=== PATIENT | female | born 1975 | race Caucasian/White ===

== ENCOUNTER 2023-09-24 20:21 | Inpatient (IN) | payer OTHER ==
[~2023-09-24 20:21] MED LIST: Iopamidol-370 76% 500 ML MDV (1 ML CHARGE) ONE
[2023-09-24] MEDS ORDERED: Sodium Chloride 0.9% 100 ML ONE (20:25)
[2023-09-24] MEDS ORDERED: Boostrix 0.5 ML (Tdap) VIAL (>/=7 yrs of age) ONE (20:25)
[2023-09-24] MEDS ORDERED: CEFAZOLIN 1 GM VIAL ONE (20:25)
[2023-09-24] MEDS ORDERED: fentaNYL 50 mcg/mL 1 mL Vial ONE ×2 (20:34→21:59)
[2023-09-24 20:49] LABS: #Basophils 0.11 10x3/uL (0.0-0.2); %Basophils 0.4 % (0.0-1.0); %Eosinophils 0.3 % (0.0-10.0); %Lymphocytes 10.6 % (21.0-51.0); %Monocytes 4.6 % (0.0-10.0); %Neutrophils 82.7 % (42.0-75.0); Hematocrit 34.2 % (36.0-47.0); Hemoglobin 11.8 g/dL (12.0-16.0); Mean Corpuscular HGB CONC 34.5 g/dL (32.0-36.0); Mean Corpuscular Hemoglobin 28.5 pg (27.0-31.0); Mean Corpuscular Volume 82.6 fL (78.0-98.0); Mean Platelet Volume 8.8 fL (7.4-10.4); Platelet Count 438 10x3/uL (130-400); RBC Distribution Width 13.4 % (11.5-14.5); Red Blood Cell (RBC) Count 4.14 mill/uL (4.20-5.40)
[2023-09-24 21:02] LABS: BHCG - Serum Negative (NEGATIVE); Pregs Control Background? CLEAR/WHITE (CLR/WHITE); Pregs Control Bar Appear? YES (CONTROL BAR)
[2023-09-24 21:03] LABS: Prothrombin Time 12.7 sec (12.0-14.7)
[2023-09-24 21:04] LABS: PTT 22.2 sec (22.9-36.1)
[2023-09-24 21:08] LABS: ALT (SGPT) 33 U/L (8-55); AST (SGOT) 63 U/L (5-34); Albumin 3.5 g/dL (3.5-5.0); Alkaline Phosphatase 103 U/L (40-110); Anion Gap 15 mmol/L (10-20); BUN (Urea Nitrogen) 15 mg/dL (7.0-18.7); Bilirubin, Total 0.4 mg/dL (0.2-1.2); CK (CPK) 245 U/L (29-168); Calc. Creatinine Clearance 0 mL/min (70-130); Calcium 8.9 mg/dL (7.8-10.44); Carbon Dioxide 19 mmol/L (22-29); Chloride 107 mmol/L (98-107); Estimated GFR 88; Globulin 2.8 g/dL (2.4-3.5); Glucose 118 mg/dL (70-105); Potassium 3.8 mmol/L (3.5-5.1); Protein, Total 6.3 g/dL (6.0-8.3); Sodium 137 mmol/L (136-145)
[2023-09-24 21:09] LABS: Acetaminophen Less than 10 mcg/mL (10.0-30.0); Alcohol Less than 10.0 mg/dL (Less than 10); Salicylate Less than 8.0 mg/dL (15.0-30.0)
[2023-09-24] MEDS ORDERED: Morphine 4 MG/ML VIAL ONE ×2 (21:09→23:49)
[2023-09-24] MEDS ORDERED: Ondansetron PF 4 MG/2 ML Vial ONE ×2 (21:14→23:49)
[2023-09-24] MEDS ORDERED: Gentamicin 80 MG/2 ML VIAL ONE (21:28)
[2023-09-24] MEDS ORDERED: PROPOFOL 20 ML ONE ×2 (21:30→21:34)
[2023-09-24] MEDS ORDERED: Acetaminophen 325 MG TAB PO PRN (22:29)
[2023-09-24] MEDS ORDERED: Ondansetron PF 4 MG/2 ML Vial IVP PRN (22:29)
[2023-09-24] MEDS ORDERED: Promethazine HCl 25 MG/ML VIAL IM PRN (22:29)
[2023-09-24] MEDS ORDERED: HYDROmorphone 0.5 MG/0.5 ML SYRINGE ONE (22:35)
[2023-09-24] MEDS ORDERED: Lorazepam 2 MG/ML VIAL ONE (23:09)
[2023-09-24 23:58] LABS: Lactic Acid 3.8 mmol/L (0.5-2.2)
[2023-09-25] MEDS: Sodium Chloride 0.9% 1,000 ML IV SCH ×2 (00:53→08:36)
[2023-09-25] MEDS: Morphine 4 MG/ML VIAL SLOW IVP PRN (01:44)
[2023-09-25] MEDS: traMADol HCl 50 MG TAB PO PRN (01:45)
[2023-09-25] MEDS: HYDROmorphone 0.5 MG/0.5 ML SYRINGE SLOW IVP SCH (02:15)
[2023-09-25] MEDS: Cyclobenzaprine 10 MG TAB PO PRN (02:16)
[2023-09-25] MEDS: diphenhydrAMINE 50 MG/ML VIAL IVP SCH (03:54)
[2023-09-25] MEDS: CEFAZOLIN 2 GM in Sodium Chloride 0.9% 100 ML IVPB SCH (05:26)
[2023-09-25] MEDS: Lorazepam 2 MG/ML VIAL SLOW IVP SCH (05:34)
[2023-09-25] MEDS ORDERED: CEFAZOLIN 2 GM in Sodium Chloride 0.9% 100 ML IVPB SCH ×2 (06:00→22:00)
[2023-09-25 06:02] LABS: #Basophils 0.03 10x3/uL (0.0-0.2); #Eosinphils Less than 0.03 10x3/uL (0.0-0.7); %Basophils 0.2 % (0.0-1.0); %Lymphocytes 9.9 % (21.0-51.0); %Monocytes 6.3 % (0.0-10.0); Hematocrit 31.5 % (36.0-47.0); Hemoglobin 10.5 g/dL (12.0-16.0); Mean Corpuscular HGB CONC 33.3 g/dL (32.0-36.0); Mean Corpuscular Hemoglobin 28.8 pg (27.0-31.0); Mean Corpuscular Volume 86.5 fL (78.0-98.0); Mean Platelet Volume 8.8 fL (7.4-10.4); Platelet Count 256 10x3/uL (130-400); RBC Distribution Width 13.7 % (11.5-14.5); Red Blood Cell (RBC) Count 3.64 mill/uL (4.20-5.40)
[2023-09-25 06:30] LABS: ALT (SGPT) 53 U/L (8-55); AST (SGOT) 94 U/L (5-34); Alkaline Phosphatase 87 U/L (40-110); Anion Gap 14 mmol/L (10-20); BUN (Urea Nitrogen) 12 mg/dL (7.0-18.7); Bilirubin, Total 0.5 mg/dL (0.2-1.2); Calc. Creatinine Clearance 0 mL/min (70-130); Calcium 7.8 mg/dL (7.8-10.44); Carbon Dioxide 19 mmol/L (22-29); Chloride 112 mmol/L (98-107); Estimated GFR 105; Globulin 2.2 g/dL (2.4-3.5); Glucose 96 mg/dL (70-105); Potassium 3.7 mmol/L (3.5-5.1); Protein, Total 5.2 g/dL (6.0-8.3); Sodium 141 mmol/L (136-145)
[2023-09-25] MEDS ORDERED: Bupivacaine HCl 0.5%/Epinephrine 1:200,000/PF 30 ml Vial ONE (07:05)
[2023-09-25] MEDS: Famotidine/PF 20 mg/2ml Vial SLOW IVP SCH (07:50)
[2023-09-25] MEDS ORDERED: diphenhydrAMINE 25 MG CAP PO PRN ×2 (08:26→14:14)
[2023-09-25] MEDS: Ketorolac Tromethamine 30 MG (1 mL) VIAL IVP SCH ×2 (09:45→18:31)
[2023-09-25] MEDS: Acetaminophen 500 MG TAB PO SCH (09:45)
[2023-09-25] MEDS ORDERED: Ondansetron PF 4 MG/2 ML Vial ONE ×2 (11:03→12:25)
[2023-09-25] MEDS ORDERED: PROPOFOL 20 ML ONE (11:38)
[2023-09-25] MEDS ORDERED: Lidocaine 1% PF 5 ML VIAL ONE (11:38)
[2023-09-25] MEDS ORDERED: fentaNYL PF 100 MCG/2 ML SYRINGE ONE (11:38)
[2023-09-25] MEDS ORDERED: Sodium Chloride 0.9% 100 ML ONE (11:48)
[2023-09-25] MEDS ORDERED: CEFAZOLIN 2 GM VIAL ONE (11:48)
[2023-09-25] MEDS ORDERED: Midazolam HCl 2 mg/2 ml Vial ONE (12:06)
[2023-09-25] MEDS ORDERED: Ketorolac Tromethamine 30 MG (1 mL) VIAL ONE (12:25)
[2023-09-25] MEDS ORDERED: Dexamethasone 20 MG/5 ML VIAL ONE (12:25)
[2023-09-25] MEDS ORDERED: Iopamidol-370 76% 500 ML MDV (1 ML CHARGE) ONE (12:28)
[2023-09-25] MEDS ORDERED: PHENYLEPHRINE-NS 100 MCG/ML 10 ML SYRINGE ONE (12:37)
[2023-09-25] MEDS ORDERED: HYDROmorphone 2 MG/ML VIAL ONE (13:38)
[2023-09-25] MEDS ORDERED: HYDROmorphone 2 MG/ML VIAL SLOW IVP PRN (14:02)
[2023-09-25] MEDS ORDERED: Ondansetron HCl/PF 4 MG/2 ML Vial IVP PRN (14:02)
[2023-09-25] MEDS ORDERED: Promethazine HCl 25 MG/ML VIAL IM PRN ×2 (14:02→14:14)
[2023-09-25] MEDS ORDERED: Morphine Sulfate 2 MG/ML SYRINGE SLOW IVP PRN (14:02)
[2023-09-25] MEDS ORDERED: PACU-Morphine 4MG/ML VIAL SLOW IVP PRN (14:02)
[2023-09-25] MEDS ORDERED: diphenhydrAMINE 50 MG/ML VIAL IM PRN ×2 (14:14→14:15)
[2023-09-25] MEDS ORDERED: diphenhydrAMINE 50 MG/ML VIAL IVP PRN (14:14)
[2023-09-25] MEDS ORDERED: Ondansetron PF 4 MG/2 ML Vial IVP PRN (14:14)
[2023-09-25] MEDS ORDERED: FENTANYL 500 MCG/10 ML VIAL 2,000 MCG in Sodium Chloride 0.9% 60 ML IV PRN (14:14)
[2023-09-25] MEDS ORDERED: Naloxone HCl 0.4 mg/ml Vial IV PRN ×2 (14:14→14:15)
[2023-09-25] MEDS ORDERED: Ketorolac Tromethamine 30 MG (1 mL) VIAL IVP PRN ×2 (14:15→15:35)
[2023-09-25] MEDS ORDERED: Communication Order-Pharmacy FS SCH ×2 (14:15)
[2023-09-25] MEDS: Acetaminophen 325 MG TAB PO SCH (18:29)
[2023-09-25] MEDS: traMADol HCl 50 MG TAB PO SCH (18:30)
[2023-09-25] MEDS: diphenhydrAMINE 50 MG/ML VIAL IVP PRN (18:30)
[2023-09-25] MEDS: Ondansetron PF 4 MG/2 ML Vial IVP PRN (18:38)
[2023-09-25] MEDS: Promethazine HCl 25 MG/ML VIAL IM PRN (21:31)
[2023-09-26] MEDS: Enoxaparin 40 MG (0.4 mL) SYRINGE SC SCH (09:46)
[2023-09-26] MEDS: diphenhydrAMINE 25 MG CAP PO PRN (10:42)
[2023-09-26] MEDS: Fentanyl CADD 100 ML IVPB PRN (20:44)
[2023-09-27] MEDS ORDERED: CEFAZOLIN 2 GM in Sodium Chloride 0.9% 100 ML IVPB SCH (09:00)
[2023-09-28] MEDS ORDERED: fentaNYL PF 100 MCG/2 ML SYRINGE ONE (14:10)
[2023-09-28] MEDS ORDERED: PROPOFOL 20 ML ONE (14:10)
[2023-09-28] MEDS ORDERED: Rocuronium Bromide 10 MG/ML (10ML VIAL) ONE (14:10)
[2023-09-28] MEDS ORDERED: Lidocaine 1% PF 5 ML VIAL ONE (14:10)
[2023-09-28] MEDS ORDERED: Sodium Chloride 0.9% 100 ML ONE (14:12)
[2023-09-28] MEDS ORDERED: CEFAZOLIN 2 GM VIAL ONE (14:12)
[2023-09-28] MEDS ORDERED: Ondansetron PF 4 MG/2 ML Vial ONE (14:48)
[2023-09-28] MEDS ORDERED: Dexamethasone 20 MG/5 ML VIAL ONE (14:48)
[2023-09-28] MEDS ORDERED: SUGAMMADEX SODIUM 200 MG/2 ML VIAL ONE (14:57)
[2023-09-28] MEDS ORDERED: Midazolam HCl 2 mg/2 ml Vial ONE (15:05)
[2023-09-28] MEDS ORDERED: Promethazine HCl 25 MG/ML VIAL IM PRN (15:17)
[2023-09-28] MEDS ORDERED: HYDROmorphone 2 MG/ML VIAL SLOW IVP PRN (15:17)
[2023-09-28] MEDS ORDERED: Morphine Sulfate 2 MG/ML SYRINGE SLOW IVP PRN (15:17)
[2023-09-28] MEDS ORDERED: PACU-Morphine 4MG/ML VIAL SLOW IVP PRN (15:17)
[2023-09-28] MEDS ORDERED: Ondansetron HCl/PF 4 MG/2 ML Vial IVP PRN (15:17)
[2023-09-28] MEDS ORDERED: HYDROmorphone 0.5 MG/0.5 ML SYRINGE ONE ×2 (15:41→15:51)
[2023-09-28] MEDS: HYDROcodone/Acetaminophen 5/325 mg Tablet PO PRN (17:41)
[2023-09-29 05:41] LABS: #Basophils Less than 0.03 10x3/uL (0.0-0.2); #Eosinphils Less than 0.03 10x3/uL (0.0-0.7); %Basophils 0.1 % (0.0-1.0); %Lymphocytes 8.3 % (21.0-51.0); %Neutrophils 85.9 % (42.0-75.0); Hematocrit 25.8 % (36.0-47.0); Hemoglobin 8.7 g/dL (12.0-16.0); Mean Corpuscular HGB CONC 33.7 g/dL (32.0-36.0); Mean Corpuscular Hemoglobin 29.3 pg (27.0-31.0); Mean Corpuscular Volume 86.9 fL (78.0-98.0); Mean Platelet Volume 8.6 fL (7.4-10.4); Platelet Count 265 10x3/uL (130-400); RBC Distribution Width 13.6 % (11.5-14.5); Red Blood Cell (RBC) Count 2.97 mill/uL (4.20-5.40)
[2023-09-29 05:58] LABS: Anion Gap 13 mmol/L (10-20); BUN (Urea Nitrogen) 6 mg/dL (7.0-18.7); Calc. Creatinine Clearance 151 mL/min (70-130); Calcium 8.3 mg/dL (7.8-10.44); Carbon Dioxide 21 mmol/L (22-29); Chloride 112 mmol/L (98-107); Estimated GFR 114; Glucose 124 mg/dL (70-105); Potassium 3.5 mmol/L (3.5-5.1); Sodium 142 mmol/L (136-145)
[2023-09-29] MEDS: Promethazine 25 MG TAB PO PRN (17:10)
[2023-09-30] MEDS: Lorazepam 2 MG/ML VIAL SLOW IVP PRN (01:19)
[2023-09-30 08:25] LABS: #Basophils 0.03 10x3/uL (0.0-0.2); %Basophils 0.4 % (0.0-1.0); %Eosinophils 3.2 % (0.0-10.0); %Lymphocytes 31.7 % (21.0-51.0); %Monocytes 5.6 % (0.0-10.0); %Neutrophils 57.8 % (42.0-75.0); Hematocrit 25.9 % (36.0-47.0); Hemoglobin 8.6 g/dL (12.0-16.0); Mean Corpuscular HGB CONC 33.2 g/dL (32.0-36.0); Mean Corpuscular Volume 87.2 fL (78.0-98.0); Mean Platelet Volume 8.8 fL (7.4-10.4); Platelet Count 289 10x3/uL (130-400); RBC Distribution Width 14.2 % (11.5-14.5); Red Blood Cell (RBC) Count 2.97 mill/uL (4.20-5.40)
[2023-09-30] MEDS: tiZANidine HCl 4 MG TAB PO SCH (09:40)
[2023-09-30] MEDS: hydrOXYzine Pamoate 25 mg Capsule PO PRN (09:40)
[2023-09-30 12:16] VITALS: BMI 31.1
[2023-09-30] MEDS: Ibuprofen 600 MG TAB PO PRN (15:55)
[2023-10-01] MEDS: Ibuprofen 600 MG TAB PO SCH (14:54)
[2023-10-01] MEDS: traMADol HCl 50 MG TAB PO PRN (20:25)
[2023-10-03] MEDS: Famotidine 20 MG TAB PO SCH (08:23)
[2023-10-03 13:12] VITALS: BP 97/62; TEMP 97.3
== END 2023-10-03 18:41 | disposition home or self-care (01) | DRG 958 ==
LOC: ERS 20:21 → SURG A 22:32
PROVIDERS: ADMIT Surgery; ATTEND Surgery
PROC: 0PSG04Z Reposition Left Humeral Shaft with Internal Fixation Device, Open Approach (ICD-10-PCS; principal; 2023-09-25)
PROC: 0RSFXZZ Reposition Left Sternoclavicular Joint, External Approach (ICD-10-PCS; 2023-09-28)
DX: S42.402B Unspecified fracture of lower end of left humerus, initial encounter for open fracture (principal); S22.42XA Multiple fractures of ribs, left side, initial encounter for closed fracture; S32.402A Unspecified fracture of left acetabulum, initial encounter for closed fracture; S43.215A Anterior dislocation of left sternoclavicular joint, initial encounter; S32.592A Other specified fracture of left pubis, initial encounter for closed fracture; S32.10XA Unspecified fracture of sacrum, initial encounter for closed fracture; K75.4 Autoimmune hepatitis; Z90.49 Acquired absence of other specified parts of digestive tract; F17.210 Nicotine dependence, cigarettes, uncomplicated; V89.2XXA Person injured in unspecified motor-vehicle accident, traffic, initial encounter
CPT/HCPCS: 36415; 70450; 70498; 71045; 71260; 72125; 72170; 74177; 80048; 80053; 80307; 82550; 83605; 84703; 85025; 85610; 85730; 86850; 86900; 86901; 90715; 93005; 93970; C1713; C1874; G0390; J0690; J1100; J1170; J1200; J1580; J1650; J1885; J2060; J2250; J2270; J2405; J2470; J2550; J2704; J3010; J3490; J7030; J7050; Q0169; Q0177; Q9967; S0028